=== PATIENT | female | born 1980 | race Caucasian/White ===

== ENCOUNTER → 2016-07-08 | Outpatient (REF) | payer OTHER ==
[~2016-07-08] MED LIST: COLA50CA3 PO; FERR325T3 PO; IBUP80TA PO; PERCOCET PO; PRENTAB74 PO
[2016-07-08 18:41] LABS: FOLLICLE STIMULATING HORMONE 5.3 mIU/mL; LUTEINIZING HORMONE 3.6 mIU/mL
== END ==
LOC: M LAB REF 16:21
PROVIDERS: ATTEND Obstetrics & Gynecology
DX: N91.1 Secondary amenorrhea (principal)

== ENCOUNTER → 2017-05-16 | Outpatient (REF) | payer OTHER | LOC: M LAB REF 19:23 | DX: J02.9 Acute pharyngitis, unspecified (principal) | CPT/HCPCS: 87070 ==

== ENCOUNTER → 2019-12-21 | Outpatient (CLI) | payer OTHER ==
[~2019-12-21] MED LIST changes: +ISOVUE-370 76% 100ML VIAL As Ordered ONE; +OXYC1TAB23 PO
--- NOTE | 2019-12-21 21:16 | REP ---
INDICATION: MICROSCOPIC HEMATURIA. COMPARISON: 04/04/2007 TECHNIQUE: Axial precontrast, contrast-enhanced, and delayed images from the lung bases to the pubic symphysis using 100 cc Isovue 370 intravenous contrast material. Coronal and sagittal reformations obtained along with volume rendered 3D CT urogram. This CT examination was performed using the following dose reduction techniques: Automated exposure control, adjustment of mA and/or kv according to the patient's size, and the use of iterative reconstruction technique. FINDINGS: Evaluation of the urinary tract system demonstrates normal appearance to the kidneys, ureters, and bladder in all phases of enhancement. The kidneys demonstrate symmetric nephrograms and symmetric excretion to the collecting system. No hydroureteronephrosis, perinephric stranding, nephroureterolithiasis, or renal mass lesion appreciated. Incidental benign 9 mm cyst in the right kidney. Liver, spleen, pancreas, and bilateral adrenal glands are normal. Evidence for prior cholecystectomy. The enteric system including stomach, small, and large bowel appears normal. No evidence for obstruction or acute inflammatory process. Normal terminal ileum and appendix are identified in the right lower quadrant. Pelvis demonstrates normal bladder and age-appropriate uterus/adnexa. No significant ascites. No free air. No intraperitoneal or retroperitoneal adenopathy. Abdominal aorta and vasculature appear normal. Incidental retroaortic left renal vein noted. Musculoskeletal structures are intact and without acute osseous abnormality. IMPRESSION: 1. Urinary tract system is essentially normal. A 9 mm benign appearing right renal cyst is identified. 2. No acute abdominopelvic pathology appreciated. <Electronically signed by Jovanny Arechiga > 12/21/19 [id number]
== END ==
LOC: M RAD 16:44
PROVIDERS: ATTEND Urology
DX: R31.29 Other microscopic hematuria (principal)
CPT/HCPCS: 74178; Q9967

== ENCOUNTER → 2021-01-16 | Outpatient (CLI) | payer OTHER ==
[~2021-01-16] MED LIST changes: -ISOVUE-370 76% 100ML VIAL As Ordered ONE
[2021-01-16 11:53] LABS: CHOLESTEROL RISK RATIO 4.018 (<5)
== END ==
LOC: M WUC 07:58
PROVIDERS: ATTEND Internal Medicine
DX: E78.00 Pure hypercholesterolemia, unspecified (principal)

== ENCOUNTER → 2021-05-08 | Outpatient (CLI) | payer OTHER ==
[2021-05-08 11:23] LABS: APPEARANCE, URINE HAZY (CLEAR); BACTERIA, URINE AUTO NEGATIVE (NEGATIVE); BILIRUBIN, URINE AUTO NEGATIVE (NEGATIVE); BLOOD, URINE BLOOD NEGATIVE (NEGATIVE); COLOR, URINE YELLOW (YELLOW); GLUCOSE, URINE (UA) AUTO NEGATIVE (NEGATIVE); KETONE, URINE AUTO NEGATIVE (NEGATIVE); LEUKOCYTE ESTERASE, URINE AUTO NEGATIVE (NEGATIVE); MUCUS, URINE SMALL (NEGATIVE); NITRITE, URINE AUTO NEGATIVE (NEGATIVE); PROTEIN, URINE AUTO NEGATIVE (NEGATIVE); RBC, URINE AUTO 3 /HPF (0-3); SQUAMOUS EPITHELIAL CELL UR AU 2 /HPF (0-6); UROBILINOGEN, URINE AUTO 0.2 mg/dL (0.0-2.0); WBC, URINE AUTO 0 /HPF (0-3)
[2021-05-08 11:30] LABS: BASO % 0.6 % (0.0-1.0); EOS # 0.1 10^3/uL (0.0-0.5); HEMATOCRIT 40.3 % (36.0-47.0); LYMPH # 1.7 10^3/uL (1.5-5.0); LYMPH % 23.3 % (24.0-44.0); MEAN CORPUSCULAR HEMOGLOBIN 28.8 pg (27.0-33.0); MEAN CORPUSCULAR HGB CONC 32.3 g/dl (32.0-36.5); MEAN CORPUSCULAR VOLUME 89.4 fl (80.0-96.0); MONO # 0.5 10^3/uL (0.0-0.8); MONO % 6.3 % (2.0-8.0); NEUTROPHILS # 4.9 10^3/uL (1.5-8.5); NEUTROPHILS % 68.5 % (36.0-66.0); PLATELET COUNT, AUTOMATED 273 10^3/uL (150-450); RED BLOOD COUNT 4.51 10^6/uL (4.00-5.40); WHITE BLOOD COUNT 7.2 10^3/uL (4.0-10.0)
[2021-05-08 12:16] LABS: ALBUMIN 3.9 GM/DL (3.2-5.2); ALT/SGPT 32 U/L (12-78); BILIRUBIN,TOTAL 0.7 MG/DL (0.2-1.0); BLOOD UREA NITROGEN 13 MG/DL (7-18); CALCIUM LEVEL 8.7 MG/DL (8.5-10.1); CARBON DIOXIDE LEVEL 26 MEQ/L (21-32); CHLORIDE LEVEL 108 MEQ/L (98-107); CHOLESTEROL LEVEL 191 MG/DL (<200); CHOLESTEROL RISK RATIO 3.472 (<5); CREATININE FOR GFR 0.88 MG/DL (0.55-1.30); GLOMERULAR FILTRATION RATE > 60.0 (>60); GLUCOSE, FASTING 97 MG/DL (70-100); HDL CHOLESTEROL 55 MG/DL (>40); LDL CHOLESTEROL 116 MG/DL (<100); NON-HDL-C 136 MG/DL; POTASSIUM SERUM 4.2 MEQ/L (3.5-5.1); SODIUM LEVEL 139 MEQ/L (136-145); TOTAL PROTEIN 6.5 GM/DL (6.4-8.2); TRIGLYCERIDES LEVEL 102 MG/DL (<150)
== END ==
LOC: M WUC 08:11
PROVIDERS: ATTEND Internal Medicine
DX: E78.00 Pure hypercholesterolemia, unspecified (principal); R73.09 Other abnormal glucose

== ENCOUNTER → 2022-01-14 | Outpatient (CLI) | payer OTHER | LOC: M PLAIMG 07:29 | PROVIDERS: ATTEND Internal Medicine | DX: M54.59 Other low back pain (principal) ==

== ENCOUNTER → 2022-05-10 | Outpatient (REF) | payer OTHER | LOC: M LAB REF 12:00 | PROVIDERS: ATTEND Internal Medicine | DX: L63.0 Alopecia (capitis) totalis (principal); D48.5 Neoplasm of uncertain behavior of skin ==

== ENCOUNTER → 2023-01-06 | Outpatient (CLI) | payer OTHER ==
[~2023-01-06] MED LIST changes: +AMOX500C PO; +PHEN-239
== END ==
LOC: M WUC 09:15
PROVIDERS: ATTEND Internal Medicine
DX: R73.09 Other abnormal glucose (principal)

== ENCOUNTER → 2023-03-15 | Outpatient (REF) | payer OTHER | LOC: M LAB REF 12:07 | PROVIDERS: ATTEND Internal Medicine | DX: R20.2 Paresthesia of skin (principal); L65.9 Nonscarring hair loss, unspecified ==

== ENCOUNTER → 2024-01-17 | Outpatient (CLI) | payer OTHER ==
[2024-01-17 16:48] LABS: APPEARANCE, URINE CLEAR (CLEAR); BACTERIA, URINE AUTO NEGATIVE (NEGATIVE); BILIRUBIN, URINE AUTO NEGATIVE (NEGATIVE); BLOOD, URINE BLOOD 2+ (NEGATIVE); COLOR, URINE YELLOW (YELLOW); GLUCOSE, URINE (UA) AUTO NEGATIVE (NEGATIVE); KETONE, URINE AUTO NEGATIVE (NEGATIVE); LEUKOCYTE ESTERASE, URINE AUTO NEGATIVE (NEGATIVE); NITRITE, URINE AUTO NEGATIVE (NEGATIVE); PROTEIN, URINE AUTO NEGATIVE (NEGATIVE); RBC, URINE AUTO 0 /HPF (0-3); SPECIFIC GRAVITY URINE AUTO 1.018 (1.002-1.035); SQUAMOUS EPITHELIAL CELL UR AU 0 /HPF (0-6); UROBILINOGEN, URINE AUTO 0.2 mg/dL (0.0-2.0); WBC, URINE AUTO 0 /HPF (0-3)
[2024-01-17 16:52] LABS: BASO # 0.1 10^3/uL (0.0-0.2); EOS # 0.1 10^3/uL (0.0-0.5); HEMOGLOBIN 13.2 g/dl (12.0-15.5); LYMPH # 2.2 10^3/uL (1.5-5.0); LYMPH % 22.8 % (24.0-44.0); MEAN CORPUSCULAR HEMOGLOBIN 28.9 pg (27.0-33.0); MEAN CORPUSCULAR VOLUME 87.7 fl (80.0-96.0); MONO # 0.6 10^3/uL (0.0-0.8); MONO % 5.9 % (2.0-8.0); NEUTROPHILS # 6.6 10^3/uL (1.5-8.5); NEUTROPHILS % 68.9 % (36.0-66.0); PLATELET COUNT, AUTOMATED 400 10^3/uL (150-450); RED BLOOD COUNT 4.56 10^6/uL (4.00-5.40); WHITE BLOOD COUNT 9.6 10^3/uL (4.0-10.0)
[2024-01-17 17:19] LABS: ALKALINE PHOSPHATASE 66 U/L (35-104); ALT/SGPT 16 U/L (7.0-40); AST/SGOT 15 U/L (<34); BILIRUBIN,TOTAL 0.5 MG/DL (0.3-1.2); BLOOD UREA NITROGEN 14 MG/DL (9-23); CALCIUM LEVEL 9.5 MG/DL (8.5-10.1); CARBON DIOXIDE LEVEL 25 MMOL/L (20-31); CHLORIDE LEVEL 105 MMOL/L (98-107); CHOLESTEROL LEVEL 194 MG/DL (<200); CHOLESTEROL RISK RATIO 4.52 (<5); CREATININE FOR GFR 0.87 MG/DL (0.55-1.30); GLOMERULAR FILTRATION RATE > 60.0 (>58); GLUCOSE, FASTING 88 MG/DL (60-100); HDL CHOLESTEROL 42.9 MG/DL (>40); LDL CHOLESTEROL 132.3 MG/DL (<100); MAGNESIUM LEVEL 1.9 MG/DL (1.8-2.4); NON-HDL-C 151.1 MG/DL; SODIUM LEVEL 138 MMOL/L (136-145); THYROID STIMULATING HORMONE 1.808 uIU/ML (0.55-4.78); TOTAL PROTEIN 7.1 G/DL (5.7-8.2); TRIGLYCERIDES LEVEL 94 MG/DL (<150)
== END ==
LOC: M WUC 11:52
PROVIDERS: ATTEND Internal Medicine
DX: E78.00 Pure hypercholesterolemia, unspecified (principal); E66.09 Other obesity due to excess calories; R00.2 Palpitations; R73.09 Other abnormal glucose

== ENCOUNTER → 2024-01-17 | Outpatient (CLI) | payer OTHER | LOC: M WHC 13:33 | PROVIDERS: ATTEND Internal Medicine | DX: Z12.31 Encounter for screening mammogram for malignant neoplasm of breast (principal) ==

== ENCOUNTER → 2025-01-14 | Outpatient (CLI) | payer OTHER ==
[~2025-01-14] MED LIST changes: -PHEN-239; +PHEN37.511
== END ==
LOC: M WHC 12:33
PROVIDERS: ATTEND Internal Medicine
DX: Z12.31 Encounter for screening mammogram for malignant neoplasm of breast (principal); R92.323 Mammographic fibroglandular density, bilateral breasts

== ENCOUNTER → 2025-01-23 | Outpatient (CLI) | payer OTHER ==
[2025-01-23 12:19] LABS: APPEARANCE, URINE CLEAR (CLEAR); BACTERIA, URINE AUTO 1+ (NEGATIVE); BILIRUBIN, URINE AUTO NEGATIVE (NEGATIVE); BLOOD, URINE BLOOD 1+ (NEGATIVE); GLUCOSE, URINE (UA) AUTO NEGATIVE (NEGATIVE); KETONE, URINE AUTO NEGATIVE (NEGATIVE); LEUKOCYTE ESTERASE, URINE AUTO NEGATIVE (NEGATIVE); MUCUS, URINE SMALL (NEGATIVE); NITRITE, URINE AUTO NEGATIVE (NEGATIVE); PROTEIN, URINE AUTO NEGATIVE (NEGATIVE); RBC, URINE AUTO 1 /HPF (0-3); SPECIFIC GRAVITY URINE AUTO 1.018 (1.002-1.035); SQUAMOUS EPITHELIAL CELL UR AU 1 /HPF (0-6); UROBILINOGEN, URINE AUTO 0.2 mg/dL (0.0-2.0); WBC, URINE AUTO 0 /HPF (0-3)
[2025-01-23 12:22] LABS: ALT/SGPT 20 U/L (7.0-40); AST/SGOT 20 U/L (<34); CALCIUM LEVEL 8.7 MG/DL (8.5-10.1); CARBON DIOXIDE LEVEL 25 MMOL/L (20-31); CHLORIDE LEVEL 109 MMOL/L (98-107); CHOLESTEROL LEVEL 190 MG/DL (<200); CHOLESTEROL RISK RATIO 3.81 (<5); CREATININE FOR GFR 0.83 MG/DL (0.55-1.30); GLOMERULAR FILTRATION RATE > 90.0 (>58); LDL CHOLESTEROL 121.0 MG/DL (<100); MAGNESIUM LEVEL 1.9 MG/DL (1.8-2.4); NON-HDL-C 140.2 MG/DL; PLATELET COUNT, AUTOMATED 370 10^3/uL (150-450); POTASSIUM SERUM 4.4 MMOL/L (3.5-5.1); SODIUM LEVEL 141 MMOL/L (136-145); TRIGLYCERIDES LEVEL 96 MG/DL (<150)
== END ==
LOC: M WUC 09:52
PROVIDERS: ATTEND Internal Medicine
DX: Z00.00 Encounter for general adult medical examination without abnormal findings (principal); E78.00 Pure hypercholesterolemia, unspecified; Z13.31 Encounter for screening for depression; R73.09 Other abnormal glucose; M54.50 Low back pain, unspecified; R00.2 Palpitations